=== PATIENT | female | born 1945 | race Hispanic/Latino ===

== ENCOUNTER 2017-07-17 00:44 | Emergency (ER) | payer OTHER ==
--- NOTE | 2017-07-17 01:33 | EDPHYS ---
Physician Documentation [facility] Name: Samantha Degroot Age: 71 yrs Sex: Female : 1945 Arrival Date: 07/17/2017 Time: 00:48 Bed 17 Private MD: Hernandez Samuel R ED Physician Harman Ocasio HPI: 07/17 01:23 This 71 yrs old Female presents to ER via Ambulatory with complaints of High ps1 Blood Pressure, Dizziness. 01:23 The patient has elevated blood pressure and discovered this at home, with a home ps1 device. Onset: The symptoms/episode began/occurred last week. hx of HTN on lisinopril and metoprolol which she takes at night. Just had reconstructive surgery on her left arm with donation from hip. States that she felt a little off balance and that she has had these symptoms intermittently before in the past which triggers her to check her blood pressure. She took her BP tonight and was elevated so she wanted to get it checked out. . Historical: - Allergies: 01:08 No Known Allergies; jd3 - Home Meds: 01:08 metoprolol tartrate 50 mg Oral tab 1 tab once daily [Active]; Zyrtec Oral [Active]; jd3 herbal laxative [Active]; omeprazole 20 mg Oral cpDR 1 cap once daily [Active]; lisinopril 40 mg Oral tab 1 tab once daily [Active]; - PMHx: 01:08 Hypertension; jd3 - PSHx: 01:08 arm surgery; D \T\ C; jd3 - Immunization history:: Adult Immunizations up to date. - Social history:: Smoking status: Patient/guardian denies using tobacco, the patient reports quitting approximately 5 years ago. ROS: 01:23 Constitutional: Negative for fever, chills, and weight loss, Eyes: Negative for injury, ps1 pain, redness, and discharge, ENT: Negative for injury, pain, and discharge, Cardiovascular: Negative for chest pain, palpitations, and edema, Respiratory: Negative for shortness of breath, cough, wheezing, and pleuritic chest pain, Abdomen/GI: Negative for abdominal pain, nausea, vomiting, diarrhea, and constipation, Back: Negative for injury and pain, : Negative for injury, bleeding, discharge, and swelling, Neuro: Negative for headache, weakness, numbness, tingling, and seizure, Psych: Negative for depression, anxiety, suicide ideation, homicidal ideation, and hallucinations. Exam: 01:23 Constitutional: This is a well developed, well nourished patient who is awake, alert, ps1 and in no acute distress. Head/Face: Normocephalic, atraumatic. Eyes: Pupils equal round and reactive to light, extra-ocular motions intact. Lids and lashes normal. Conjunctiva and sclera are non-icteric and not injected. Chest/axilla: Normal chest wall appearance and motion. Nontender with no deformity. No lesions are appreciated. Cardiovascular: Regular rate and rhythm. No gallops, murmurs, or rubs. Normal PMI, no JVD. No pulse deficits. Respiratory: Lungs have equal breath sounds bilaterally, clear to auscultation and percussion. No rales, rhonchi or wheezes noted. No increased work of breathing, no retractions or nasal flaring. Abdomen/GI: Soft, non-tender, with normal bowel sounds. No distension or tympany. No guarding or rebound. No evidence of tenderness throughout. Skin: Warm, dry with normal turgor. Normal color with no rashes, no lesions, and no evidence of cellulitis. MS/ Extremity: Pulses equal, no cyanosis. Neurovascular intact. Full, normal range of motion. Neuro: Awake and alert, GCS 15, oriented to person, place, time, and situation. Cranial nerves II-XII grossly intact. Sensory grossly intact. Psych: Awake, alert, with orientation to person, place and time. Behavior, mood, and affect are within normal limits. Vital Signs: 01:09 BP 165 / 77; Pulse 70; Resp 18 S; Temp 99.0(O); Pulse Ox 97% on R/A; Weight 81.65 kg jd3 (R); Height 5 ft. 2 in. (157.48 cm) (R); Pain 0/10; 01:09 Body Mass Index 32.92 (81.65 kg, 157.48 cm) jd3 MDM: 01:23 Data reviewed: vital signs, nurses notes. ps1 01:33 Patient medically screened. ps1 Administered Medications: No medications were administered Disposition: 07/17/17 01:33 Discharged to Home. Impression: Hypertension. - Condition is Stable. - Discharge Instructions: Hypertension. - Medication Reconciliation Form, Thank You Letter, Antibiotic Education, Prescription Opioid Use form. - Follow up: Hernandez Samuel MD; When: As needed; Reason: Recheck today's complaints, Continuance of care, Re-evaluation by your physician. Follow up: Emergency Department; When: As needed; Reason: Trouble breathing, Worsening of condition. - Problem is chronic. - Symptoms have worsened. Signatures: Red Carranza RN RN jd3 Harman Ocasio MD MD ps1
--- NOTE | 2017-07-17 01:33 | ER ---
Nurse's Notes [facility] Name: Samantha Degroot Age: 71 yrs Sex: Female : 1945 Arrival Date: 07/17/2017 Time: 00:48 Bed 17 Private MD: Hernandez Samuel R Diagnosis: Hypertension Presentation: 07/17 01:01 Presenting complaint: Patient states: ""my blood pressure has been going really high jd3 recently, even on my medication.". Transition of care: patient was not received from another setting of care. Onset of symptoms was July 17, 2017. Initial Sepsis Screen: Does the patient meet any 2 criteria? No. Patient's initial sepsis screen is negative. Does the patient have a suspected source of infection? No. Patient's initial sepsis screen is negative. Care prior to arrival: None. 01:01 Method Of Arrival: Ambulatory jd3 01:01 Acuity: EDMUND 4 jd3 Historical: - Allergies: 01:08 No Known Allergies; jd3 - Home Meds: 01:08 metoprolol tartrate 50 mg Oral tab 1 tab once daily [Active]; Zyrtec Oral [Active]; jd3 herbal laxative [Active]; omeprazole 20 mg Oral cpDR 1 cap once daily [Active]; lisinopril 40 mg Oral tab 1 tab once daily [Active]; - PMHx: 01:08 Hypertension; jd3 - PSHx: 01:08 arm surgery; D \\T\\ C; jd3 - Immunization history:: Adult Immunizations up to date. - Social history:: Smoking status: Patient/guardian denies using tobacco, the patient reports quitting approximately 5 years ago. Screenin:12 Abuse screen: Denies threats or abuse. Nutritional screening: No deficits noted. jd3 Tuberculosis screening: No symptoms or risk factors identified. Fall Risk Ambulatory Aid- Crutches/Cane/Walker (15 pts). Gait- Weak (10 pts.). Mental Status- Oriented to own ability (0 pts). Total Harvey Fall Scale indicates Low Risk Score (25-44 pts). Fall prevention measures have been instituted. Side Rails Up X 2 Placed close to Nursing Station Frequent Obs/Assesments occuring Family Present and informed to notify staff if they need to leave bedside. Assessment: 01:11 General: Appears in no apparent distress. uncomfortable, Behavior is calm, cooperative, jd3 appropriate for age, Reports fatigue for dizziness. Pain: Denies pain. Neuro: Level of Consciousness is awake, alert, obeys commands, Oriented to person, place, time, situation. Cardiovascular: Heart tones S1 S2 present Capillary refill < 3 seconds Patient's skin is warm and dry. Respiratory: Airway is patent Respiratory effort is even, unlabored, Respiratory pattern is regular, symmetrical, Breath sounds are clear bilaterally. GI: Abdomen is round Bowel sounds present X 4 quads. Abd is soft and non tender X 4 quads. : No signs and/or symptoms were reported regarding the genitourinary system. EENT: No signs and/or symptoms were reported regarding the EENT system. Derm: Skin is intact, Skin is dry, Skin is normal, Skin temperature is warm. Musculoskeletal: Circulation, motion, and sensation intact. Range of motion: intact in all extremities. 01:39 Reassessment: Patient appears in no apparent distress at this time. Patient and/or jd3 family updated on plan of care and expected duration. Pain level reassessed. Patient is alert, oriented x 3, equal unlabored respirations, skin warm/dry/pink. pt reported understanding of discharge instructions, even and steady gait upon discharge. Vital Signs: 01:09 BP 165 / 77; Pulse 70; Resp 18 S; Temp 99.0(O); Pulse Ox 97% on R/A; Weight 81.65 kg jd3 (R); Height 5 ft. 2 in. (157.48 cm) (R); Pain 0/10; 01:09 Body Mass Index 32.92 (81.65 kg, 157.48 cm) j ED Course: 00:48 Patient arrived in ED. am2 00:48 Hernandez Samuel MD is Private Physician. am2 00:51 Red Carranza RN is Primary Nurse. jd3 00:58 Harman cOasio MD is Attending Physician. ps1 01:03 Triage completed. jd3 01:10 Arm band placed on. jd3 01:13 Patient has correct armband on for positive identification. Bed in low position. Call jd3 light in reach. Adult w/ patient. 01:32 Hernandez Samuel MD is Referral Physician. ps1 01:40 No provider procedures requiring assistance completed. Patient did not have IV access jd3 during this emergency room visit. Administered Medications: No medications were administered Outcome: 01:33 Discharge ordered by . ps1 01:40 Discharged to home ambulatory, with family. jd3 01:40 Condition: stable 01:40 Discharge instructions given to patient, family, Instructed on discharge instructions, follow up and referral plans. Demonstrated understanding of instructions, follow-up care. 01:40 Patient left the ED. jd3 Signatures: Bina Paz am2 Red Carranza RN RN jd3 Harman Ocasio MD MD ps1 Corrections: (The following items were deleted from the chart) 01:29 01:01 Acuity: EDMUND 3 jd3 jd3
== END 2017-07-17 01:40 | disposition home or self-care (01) ==
LOC: ER 00:44
DX: I10 Essential (primary) hypertension (principal); Z87.891 Personal history of nicotine dependence
CPT/HCPCS: 99281